=== PATIENT | female | born 1990 ===

== ENCOUNTER 2018-08-07 16:24 | Emergency (ER) | payer OTHER ==
[2018-08-07 16:37] VITALS: TEMP 98.1
[2018-08-07] MEDS ORDERED: Tetracaine 0.5% Ophth 2 ML BOTTLE OU STA (17:32)
[2018-08-07] MEDS ORDERED: Fluorescein 1 mg Ophthalmic Strip OU STA (17:32)
[2018-08-07] MEDS ORDERED: Fluorescein 1 mg Ophthalmic Strip ONE (17:46)
[2018-08-07] MEDS ORDERED: Tetracaine 0.5% Ophth 2 ML BOTTLE ONE (17:46)
--- NOTE | 2018-08-07 18:42 | ED PDOC ---
HPI: Eye Injury/Pain Time Seen by Provider: 08/07/18 17:02 Chief Complaint (Nursing): Eye Problem Chief Complaint (Provider): Bilateral eye pain History Per: Patient History/Exam Limitations: no limitations Onset/Duration Of Symptoms: Intermittent Episodes, Persistent Current Symptoms Are (Timing): Still Present Quality: "Pain" Wears Contact Lens?: No Associated Symptoms: Itching, Discharge From Eye (clear). denies: FB Sensation Additional Complaint(s): 27yo female with no past medical history, comes to ER with complaints of bilateral eye pain and irritation. She states she began having intermittent episodes of eye discomfort, redness and swelling 11 months ago, with recurrent episodes monthly. She reports some relief in redness with visine and states the irritation spontaneously resolves after 1-2 weeks. She states when the episode recurred yesterday, she has "sandpaper" sensation in her eyes, as well as occasional blurriness. She denies any purulent discharge, trauma, exposure to dusts or particles; additional denies any seasonal allergies, allergy to pet fur, dust or dander. No additional complaints. PMD: None Past Medical History Reviewed: Historical Data, Nursing Documentation, Vital Signs Vital Signs: Last Vital Signs Temp 98.1 F 08/07/18 16:37 Pulse 98 H 08/07/18 16:37 Resp 16 08/07/18 16:37 BP 145/95 H 08/07/18 16:37 Pulse Ox 100 08/07/18 16:37 - Medical History PMH: No Chronic Diseases - Surgical History Surgical History: No Surg Hx - Family History Family History: States: No Known Family Hx - Allergies Allergies/Adverse Reactions: Allergies Allergy/AdvReac Type Severity Reaction Status Date / Time No Known Allergies Allergy Verified 08/07/18 16:40 Review of Systems Eyes: Positive for: Pain, Eyelid Inflammation, Redness. Negative for: Vision Change ENT: Negative for: Ear Pain, Throat Pain Physical Exam - Reviewed Nursing Documentation Reviewed: Yes Vital Signs Reviewed: Yes - Physical Exam Appears: Positive for: Non-toxic, Uncomfortable Head Exam: Positive for: ATRAUMATIC, NORMAL INSPECTION, NORMOCEPHALIC Skin: Positive for: Normal Color, Warm, Dry Eye Exam: Positive for: EOMI, PERRL, Conjunctival injection, Other (clear discharge; eyelid edema bilaterally) ENT: Positive for: Normal ENT Inspection, TM Is/Are (normal bilaterally). Negative for: Pharyngeal Erythema, Tonsillar Exudate, Tonsillar Swelling Cardiovascular/Chest: Positive for: Regular Rate, Rhythm Respiratory: Positive for: Normal Breath Sounds Neurological/Psych: Positive for: Alert, Oriented (x 3) - ECG O2 Sat by Pulse Oximetry: 100 (RA) Pulse Ox Interpretation: Normal Medical Decision Making Medical Decision Makiny[place] female with bilateral eye pain Plan: -- Eye exam with Cardenas lens -- Opthalmology consult Tetracaine applied to bilateral eyes, and fluroscein applied; eye examed using Cardenas lamp and no signs of corneal abrasion noted bilaterally. Visual acuity: Left: 20/15 Right: 20/30 Bilatera: 20/25 Pending call back from opthalmologist pet food deboner. [address] Dennis who states no medications at this time, and patient to be discharged home with strict follow up in his office at 10am tomorrow. Patient informed of plan and is agreeable. Scribe Attestation: Documented by Renate Hager, acting as a scribe for WILLIE Regalado. Provider Scribe Attestation: All medical record entries made by the Scribe were at my direction and personally dictated by me. I have reviewed the chart and agree that the record accurately reflects my personal performance of the history, physical exam, medical decision making, and the department course for this patient. I have also personally directed, reviewed, and agree with the discharge instructions and disposition. Disposition - Clinical Impression Clinical Impression: Eye irritation - Disposition Referrals: Deshawn Dennis MD [Staff Provider] - Disposition: Routine/Home Disposition Time: 19:04 Condition: FAIR Additional Instructions: Follow up with Dr. Dennis (ophthalmology) tomorrow at 10am. Return to ER if you have decreased vision or increased eye pain. Forms: [email or web address] (Nepali) Print Language: [email or web address]
[2018-08-07 19:17] VITALS: BP 132/89; PULSE 70; RESP 18
[2018-08-07 23:23] VITALS: O2SAT 100
== END 2018-08-07 19:15 | disposition home or self-care (01) ==
LOC: H.ER 16:24
DX: H57.89 Other specified disorders of eye and adnexa (principal)